=== PATIENT | male | born 1965 | race Caucasian/White ===

== ENCOUNTER 2017-04-15 18:03 | Emergency (ER) | payer OTHER ==
--- NOTE | ~2017-04-15 | CR116 ---
[facility] A Service of [facility] & [facility] RADIOLOGY TEXT RESULTS PATIENT: SURINDER ROSA LOCATION: CFT[facility] : [id number] UNIT #: [id number] AGE: [address]: Ale Romero APRN SEX: M ORDER DR: [id number] [facility] [address] [place], [place] [address] [id number] E MR#: [id number] Acc #: [id number] NAME: SURINDER ROSA : 1965 SEX: M STUDY DATE/TIME: 04/15/2017 21:06 UNIT: [facility] ROOM: STUDY DESCRIPTION: CR Finger 2 View Thumb Lt Attending Physician: Ale Romero A.P.R.N. Ordering Physician: Ale Romero A.P.R.N. Primary Care Physician: No Primary Care Physician MEDICAL IMAGING REPORT This report is preliminary unless electronic signature is present EXAM Left thumb series. INDICATIONS Laceration to the left thumb with pain and swelling today. Observation for foreign body. PROCEDURE 4 views of the left thumb. COMPARISON None. FINDINGS No radiodense foreign body. No acute fracture. IMPRESSION No acute findings. No radiodense foreign body. Dictated by... Henri Copeland M.D. THIS IS AN ELECTRONICALLY VERIFIED REPORT Henri Copeland M.D. at 04/16/2017 10:40 AM LIBBY/joseph TD: 04/15/2017 22:23 JOB #: [id number] MEDICAL IMAGING REPORT Page 1 of 1 COPY
== END 2017-04-15 22:32 | disposition home or self-care (01) ==
LOC: CFTX 18:03 → CED 18:03 → CFTX 21:13
DX: S61.012A Laceration without foreign body of left thumb without damage to nail, initial encounter (principal); F17.200 Nicotine dependence, unspecified, uncomplicated; X58.XXXA Exposure to other specified factors, initial encounter; Y93.89 Activity, other specified; Y92.69 Other specified industrial and construction area as the place of occurrence of the external cause; Y99.0 Civilian activity done for income or pay; Z23 Encounter for immunization
CPT/HCPCS: 12002; 73140; 90471; 90715; 99283